=== PATIENT | male | born 1980 | race Two or more races ===

== ENCOUNTER 2025-06-28 09:10 | Emergency (ER) | payer BC, SELFPAY ==
--- NOTE | ~2025-06-28 | XR_ITS ---
EXAMINATION: XR HIP, RIGHT CLINICAL INFORMATION: pain COMPARISON: None available. TECHNIQUE: AP pelvis, and 2 views of the of the right hip. FINDINGS: No fracture, dislocation, or suspicious bone lesion. There is normal alignment of both hips. Joint spaces are preserved. No significant arthrosis evident. 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 No soft tissue abnormalities are evident. XR/XR hip RT w [id number] IMPRESSION: No acute bony or soft tissue abnormalities of the pelvis or right hip. Electronically signed by: David Pate MD 06/28/2025 10:10 AM EDT
[2025-06-28 09:16] VITALS: BP 138/92; PULSE 86; RESP 16; TEMP 36.7; O2SAT 99; BMI 36.0
--- NOTE | 2025-06-28 09:58 | ED_ITS ---
HPI - Extremity Problem General Chief complaint: Extremity Problem Stated complaint: R sided body pain Time Seen by Provider: 06/28/25 09:33 Source: patient and family Mode of arrival: ambulatory Limitations: no limitations History of Present Illness ED Provider: DR. Fulton HPI Narrative: 45-year-old male came in for evaluation of right groin pain radiates down to the right knee x1 day, admit to carrying a heavy case of water in his right shoulder yesterday, otherwise no fall, no injury. Patient is known to have 2 Herniated disc, and chronic knee pain. No fever, no chills. Related Data Allergies Allergy/AdvReac Type Severity Reaction Status Date / Time No Known Allergies Allergy Verified 06/28/25 09:19 Review of Systems Review of Systems: All other systems are reviewed and are negative Constitutional: Reports as per HPI and Reports no additional constitutional complaints Eyes: Reports as per HPI and Reports no additional eye complaints Reports system reviewed and no additional complaints, except as documented Cardiovascular: Reports as per HPI and Reports no additional cardiovascular complaints Respiratory: Reports as per HPI and Reports no additional respiratory complaints Gastrointestinal: Reports as per HPI and Reports no additional gastrointestinal complaints Genitourinary: Reports no additional female genitourinary complaints Musculoskeletal: Reports no additional musculoskeletal complaints Skin/Breast: Reports system reviewed and no additional complaints, except as docu Psychiatric: Reports no additional psychiatric complaints Endocrine: Reports no additional endocrine complaints Hematologic/Lymphatic: Reports no additional hematologic/lymphatic complaints Allergic/Immunologic: Reports no additional allergic/immunologic complaints Reports system reviewed and no additional complaints, except as documented and Reports Abnormal speech present [facility] Social History Social History Advance Directives: No Advance Directives Information Provided: No Physical Exam Vital Signs: Vital Signs: Last Vital Signs Temp 98.1 F 06/28/25 09:16 Pulse 86 06/28/25 09:16 Resp 16 06/28/25 09:16 BP 138/92 H 06/28/25 09:16 Pulse Ox 99 06/28/25 09:16 O2 Del Method Room Air 06/28/25 09:16 BMI result Body Mass Index 36.0 Vital signs have been reviewed and appear to be correct. Blood pressure elevated. Heart rate normal. Respiratory rate normal. Temperature normal. Oxygen saturation normal. Appearance: Alert. Oriented X3. No acute distress. Head: Normal external exam. Normocephalic. Atraumatic. No Barrera signs noted. No raccoon eyes noted Eyes: PERRLA. EOMI. Conjunctiva and sclera normal. Eyelids normal. ENT: TM's Normal. Pharynx normal. Uvula midline. Moist mucous membranes. No trismus noted. No drooling noted. No muffled voice noted. Neck: Normal inspection. Neck supple. FROM. No adenopathy. Thyroid Normal. No meningeal signs. No neck mass noted. CVS: Normal heart rate and rhythm. Heart sound normal. No murmurs noted. Pulses normal throughout. Respiratory: No respiratory distress. Painless inspiration. Breath sounds normal. No wheezes/rales/rhonchi noted. Chest nontender. No accessory muscle usage noted or decreased air movement noted. Abdomen: Soft and nontender. Bowel sounds normal in all 4 quadrants. No distention noted. No organomegaly noted. No visible injury noted. Back: No CVA tenderness. Full range of motion noted. Skin: Skin warm and dry. Normal skin color. Normal skin turgor. No rashes/lesions/lacerations noted. Extremities: No lower extremity edema. Extremities exhibit normal range of motion. Extremities nontender. Neuro: Oriented X 3. Cranial nerve exam: II-XII are grossly intact No motor deficit. No sensory deficit. Reflexes normal. Course Reevaluation(s) Reevaluation #1: Feels better after getting pain medication, unremarkable x-ray of right hip on right knee. Instructed to take ibuprofen / Tylenol and follow-up with PCP. Time: 11:30 Medications Administered Discontinued Medications Generic Name Dose Route Start Last Admin Trade Name Freq PRN Reason Stop Dose Admin Cyclobenzaprine HCl 10 mg 06/28/25 09:50 06/28/25 10:07 Cyclobenzaprine Hcl 10 Mg Tablet PO 06/28/25 09:51 10 mg ONCE ONE Administration Ibuprofen 600 mg 06/28/25 09:50 06/28/25 10:07 Ibuprofen 600 Mg Tablet PO 06/28/25 09:51 600 mg ONCE ONE Administration Oxycodone HCl 5 mg 06/28/25 09:50 06/28/25 10:07 Oxycodone Hcl Immed Release 5 Mg Tablet PO 06/28/25 09:51 5 mg ONCE ONE Administration Medical Decision Making Differential Diagnosis Differential Diagnoses: The differential diagnosis associated with the presentation includes ( Inguinal ligament sprain, right hip arthritis, inguinal hernia ( complicated).) Admission/Observation Consideration of admission/observation: Escalation of care including admission/observation considered Independent Interpretation I performed an independent interpretation of an: Plain X-Ray ( lumbar spine: No acute bony or soft tissue abnormalities of the pelvis or right hip) Radiology Impression Discussion of test interpretation with radiology: I have reviewed the radiologist's reading. Discharge Plan Discharge Clinical Impression: Arthralgia of hip, left Patient Disposition: Home, Self-Care Instructions: Arthralgia (ED) Additional Instructions: take [id number] 200 mg ibuprofen or 500 mg Tylenol if needed for pain every 6 hours. Referrals: Geneva Alvarado MD [Primary Care Provider, Internal Medicine] Print Language: [place]i
[2025-06-28] MEDS: oxyCODONE HCl Immed Release 5 MG TABLET PO (10:07)
[2025-06-28 12:00] VITALS: BP 139/91; PULSE 62; RESP 16; TEMP 36.8; O2SAT 100
== END 2025-06-28 12:01 | disposition home or self-care (01) ==
PROVIDERS: Emergency Provider Emergency Medicine; PCP Internal Medicine
DX: M25.561 Pain in right knee (principal); M25.551 Pain in right hip; G89.29 Other chronic pain; Z79.899 Other long term (current) drug therapy
CPT/HCPCS: 73502; 99283

== ENCOUNTER → 2025-06-28 09:50 | Outpatient (BNV) | payer BC, SELFPAY | PROVIDERS: Emergency Provider Emergency Medicine; PCP Internal Medicine; Visit Provider Radiology Diagnostic Radiology | DX: M25.551 Pain in right hip (principal) | CPT/HCPCS: 73502 ==